=== PATIENT | female | born 1975 | race Caucasian/White ===

== ENCOUNTER → 2017-03-28 | Outpatient (CLI) | payer OTHER ==
--- NOTE | ~2017-03-28 | CNG ---
[facility] [place] [address] CYTO-NONGYN REPORT PROCEDURE Name: AMINA FORDE Room #: REG Pranav Pineda.#: [id number] Admission: 03/28/17 Date of : 79 Discharge: Report #: [id number] Path Case #: [id number] CYTOPATHOLOGY REPORT COLLECTION DATE: 03/28/2017 RECEIVED DATE: 03/28/2017 SUBMITTING PHYS: Dr. Toney Orozco OTHER PHYS: Dr. Alek Darden CLINICAL HISTORY: Thyroid nodule. SPECIMEN(S) RECEIVED: A.US guided Fine needle aspiration, Left thyroid * * * * * * * * * * * * FINAL DIAGNOSIS: A. Left thyroid, US guided Fine needle aspiration: BETHESDA CATEGORY II. SPECIMEN CONSISTS OF FOLLICULAR CELLS IN MACROFOLLICLES, SCANT DENSE COLLOID AND BLOOD, COMPATIBLE WITH AN ADENOMATOID NODULE. PATHOLOGIST: Amee Loza M.D. REPORT ELECTRONICALLY SIGNED BY: Amee Loza M.D. DATE/TIME: 03/31/2017 16:48 * * * * * * * * * * * * GROSS PATHOLOGY: A. US guided Fine needle aspiration, Left thyroid: The specimen is labeled "Amina Forde" and consists of three fixed slides, three air dried slides. Twenty mL of red fluid in fixative from the needle rinse is also submitted and one ThinPrep slide and a cell block were prepared from this material. (clt 03.28.2017) TIRE FIXER(S): ARVIN Ngo[facility] INITIAL CPT CODE(S): A; 68840, 52107 Professional services performed by [facility] at [facility] [address], [place] [address] Technical services performed by [facility] at [address] [place] [address]., [address], [place] [address]. [facility] [address] [place] [address], [address] [facility] [address] [place] [address] CYTO-NONGYN REPORT PROCEDURE Name: AMINA FORDE Fady Room #: REG [facility].#: [id number] Admission: 03/28/17 Date of : 79 Discharge: Report #: [id number] Path Case #: [id number] [place] [address] PHONE: [phone] DIRECTOR: Kendrick Santiago M.D. * * * END OF REPORT * * *
== END ==
LOC: ULTRA 02:06
DX: E04.1 Nontoxic single thyroid nodule (principal)

== ENCOUNTER → 2018-04-21 | Outpatient (CLI) | payer OTHER | LOC: ULTRA 09:20 | DX: E04.1 Nontoxic single thyroid nodule (principal) ==